=== PATIENT | male | born 1950 | race African-American/Black ===

== ENCOUNTER 2020-01-08 12:29 | Emergency (ER) | payer OTHER, SELFPAY ==
[2020-01-08 12:38] VITALS: BP 123/67; PULSE 82; RESP 20; TEMP 36.9; O2SAT 100
--- NOTE | 2020-01-08 13:40 | ED.GENADULT ---
HPI - General Adult General Chief complaint: Upper Respiratory Infection Stated complaint: runny nose/cough Time Seen by Provider: 01/08/20 13:40 Source: patient and RN notes reviewed Mode of arrival: ambulatory Limitations: no limitations History of Present Illness HPI narrative: 69-year-old -[place]i male presents with complaints of upper respiratory infection, cough, and intermittent headaches (not the worst of life) for the past 1 day. Robitussin with no relief. No facial swelling. Dry cough and intermittent productive cough (clear phlegm). No chest congestion. Nasal congestion and rhinorrhea. No chest pain or shortness of breath. No exacerbating factors. Denies fever or chills. Denies nausea, vomiting, and abdominal pain. Tolerating po intake well. Remains active. Some parts of this dictation were generated by voice recognition software and may contain typographical and/or grammatical inaccuracies. Related Data Allergies Allergy/AdvReac Type Severity Reaction Status Date / Time No Known Allergies Allergy Unknown Verified 01/08/20 12:45 Review of Systems Review of Systems: Narrative: CONSTITUTIONAL: Denies fever, chills, sweats. EYES: Denies visual changes, redness, discharge. ENT: Complains of rhinorrhea, congestion. Denies sore throat, otalgia. CARDIOVASCULAR: Denies chest pain, palpitations, edema. RESPIRATORY: Denies dyspnea, wheezing. Complains of dry cough,intermittent productive. GASTROINTESTINAL: Denies abdominal pain, nausea, vomiting, diarrhea. GENITOURINARY: Denies dysuria, hematuria, abnormal discharge. SKIN: Denies rash or itching. MUSCULOSKELETAL: Denies acute back pain, joint pain, or myalgia. NEUROLOGIC: Denies numbness or focal weakness. Complains of intermittent headaches. PSYCHIATRIC: Denies anxiety or depression. All systems reviewed & are unremarkable except as noted in HPI and below. [facility] Past Medical History Medical History (Updated 01/09/20 @ 00:01 by Joseph Demarco) Arthritis Surgical History Surgical History (Updated 01/08/20 @ 13:50 by ALFIE López) History of foot surgery Family History Family History (Updated 01/08/20 @ 13:51 by ALFIE López) Other No significant family history Social History Social History (Updated 01/08/20 @ 13:51 by ALFIE López) Smoking status: Never smoker Second hand tobacco smoke exposure: No Alcohol intake: never Substance use: never Gender identity (if verbalized by the patient): Male Comments At time of signature, agree with nurse past medical, surgical, social, and family history. There is no relevant family history pertinent to the presenting complaint. Exam Narrative: Exam Narrative: GENERAL: This is a well-nourished, well-developed patient, in no apparent distress. Talks in full sentences and ambulates with steady gait without dyspnea. HEAD: normocephalic, atraumatic. EYES: PERRL. Sclera clear/white. Vision is grossly intact. EARS: External ears normal, auditory canals clear and without drainage, TMs normal without perforation. Hearing grossly intact. NOSE: External nose normal with no obvious nasal discharge, nares with moderate redness and enlarged turbinates, clear rhinorrhea. THROAT: Mucous membranes moist, posterior pharynx with PND, mild erythema, no exudate, and normal tonsils. No drainage, no concern for Peritonsillar abscess. No drooling, trismus, or neck swelling. NECK: Neck supple, non-tender without lymphadenopathy, masses or thyromegaly. CARDIOVASCULAR: Regular rate and rhythm without murmurs, gallops, or rubs. RESPIRATORY: Clear to auscultation. Breath sounds equal bilaterally. No wheezes, rales, or rhonchi. GASTROINTESTINAL: Abdomen soft, non-tender, nondistended. Bowel sounds are active. No hepato-splenomegaly, or palpable masses. No guarding. SKIN: warm, intact with no suspicious lesions or rash, good texture and turgor. NEURO: awake, alert, and oriented to person, sami
== END 2020-01-08 14:03 | disposition home or self-care (01) ==
PROVIDERS: Emergency Provider Nurse Practitioner Family; PCP Family Medicine
DX: J00 Acute nasopharyngitis [common cold] (principal); J01.90 Acute sinusitis, unspecified; M19.90 Unspecified osteoarthritis, unspecified site
CPT/HCPCS: 99213; G0463

== ENCOUNTER 2020-01-19 12:34 | Emergency (ER) | payer OTHER, SELFPAY ==
[2020-01-19 12:40] VITALS: BP 126/81; PULSE 84; RESP 20; TEMP 36.8; O2SAT 100
--- NOTE | 2020-01-19 13:14 | ED.GENADULT ---
HPI - General Adult General Chief complaint: Upper Respiratory Infection Stated complaint: cough/body aches/mancuso/swollen rt big toe History of Present Illness HPI narrative: Patient is a 69-year-old -[place]er male presents to the urgent care via POV for evaluation of a productive cough that is been present since yesterday. Additionally, he reports myalgias. He reports sputum production is clear and small in quantity. He is also experiencing right great toe pain with erythema and swelling. He states his pain is aching in nature. Symptoms began this morning. Denies taking OTC meds for toe pain. Toe pain worsens with walking. OTC Claritin and Robitussin helped alleviate respiratory symptoms. Nothing worsens respiratory symptoms. Related Data Home Medications Medication Instructions Recorded Confirmed [id number] ml PO 01/19/20 [Robitussin Cold-Flu Night (PE)] Allergies Allergy/AdvReac Type Severity Reaction Status Date / Time No Known Allergies Allergy Unknown Verified 01/19/20 12:48 Review of Systems Review of Systems: Narrative: All other systems reviewed and are negative [facility] Past Medical History Medical History (Updated 01/19/20 @ 13:37 by ALFIE Prado, ) Arthritis Surgical History Surgical History (Updated 01/08/20 @ 13:50 by ALFIE López) History of foot surgery Family History Family History (Updated 01/08/20 @ 13:51 by ALFIE López) Other No significant family history Social History Social History (Updated 01/08/20 @ 13:51 by ALFIE López) Smoking status: Never smoker Second hand tobacco smoke exposure: No Alcohol intake: never Substance use: never Gender identity (if verbalized by the patient): Male Exam Narrative: Exam Narrative: GENERAL: Well-appearing, well-nourished, and in no acute distress. HEAD: Normocephalic, atraumatic. No sinus tenderness or facial swelling appreciated. EYES: PERRLA and EOMI. No evidence of erythema, swelling, or drainage. ENT: Bilateral external ears and ear canals normal. Bilateral TMs are normal.No TM perforation. Nares clear, no rhinorrhea or epistaxis. Bilateral turbinates without erythema/ swelling. Mucous membranes moist and pink. Uvula is midline without erythema and swelling. No evidence of petechial rash, cobblestoning, lesions, ulcers, erythema, swelling, exudates, peritonsillar abscess, tenting, or drooling. Breath odor and voice normal. NECK: Supple. No Lymphadenopathy or nuchal rigidity appreciated. CHEST: Bilateral lung renner are clear to auscultation. No respiratory distress. No evidence of cough or pleuritic cp upon examination. HEART: Regular rate and rhythm. No murmur, gallop, or rub heard. EXTREMITIES: Mild pain, swelling, and erythema appreciated to first MTP consistent with gout. No evidence of injury, decreased ROM, cyanosis, hematoma, laceration, abrasion, deformity, rash, or puncture. Mild evidence of pain with active/passive flexion and extension of right great toe.. No evidence of dislocation, ligament laxity, effusion, or pain at rest. Pulses palpable at 2+, strength 5/5, and cap refill < 3 seconds in affected extremity. DTRs normal. Gait normal. SKIN: Warm, dry, no rash. NEURO: No focal deficits. Alert and oriented x3. SPECIAL OBSERVATIONS: Smiling. No evidence of discomfort. Course Vital Signs Vital signs: Vital Signs Temperature 98.3 F 01/19/20 12:40 Pulse Rate 84 01/19/20 12:40 Respiratory Rate 20 01/19/20 12:40 Blood Pressure 126/81 01/19/20 12:40 Pulse Oximetry 100 01/19/20 12:40 Temperature 98.3 F 01/19/20 12:40 Pulse Rate 84 01/19/20 12:40 Respiratory Rate 20 01/19/20 12:40 Blood Pressure 126/81 01/19/20 12:40 Pulse Oximetry 100 01/19/20 12:40 Medical Decision Making Differential Diagnosis Differential Diagnosis: Allergic rhinitis, ABRS, acute viral sinusitis, strep pharyngitis, nasopharyngi
== END 2020-01-19 13:38 | disposition home or self-care (01) ==
PROVIDERS: Emergency Provider Nurse Practitioner Family; PCP Family Medicine
DX: J06.9 Acute upper respiratory infection, unspecified (principal); M79.674 Pain in right toe(s); M19.90 Unspecified osteoarthritis, unspecified site
CPT/HCPCS: 87804; 99213; G0463

== ENCOUNTER 2020-05-22 16:02 | Emergency (ER) | payer OTHER, SELFPAY ==
--- NOTE | ~2020-05-22 | XR_ITS ---
EXAMINATION: XR ankle RT min 3V DATE: 05/22/2020 16:23 INDICATION: Right ankle injury and pain. TECHNIQUE: 4 views of right ankle were obtained. COMPARISON: Right ankle radiographs 02/15/2013 FINDINGS: Bone alignment is normal. No acute fracture. There is an old healed fracture of distal fibu la. There is heterotopic ossification of the tibiofibular syndesmosis. There are enthesophytes at med ial malleolus. There is moderate midfoot osteoarthritis. There are enthesophytes at the posterior and plantar aspects of calcaneal tuberosity. Ankle soft tissue swelling is noted. IMPRESSION: 1. Moderate midfoot osteoarthritis. Reviewed, dictated and finalized at location A.
--- NOTE | ~2020-05-22 | XR_ITS ---
EXAMINATION: XR foot RT min 3V DATE: 05/22/2020 16:23 INDICATION: Right-sided injury and pain. TECHNIQUE: 4 views of right foot were obtained. COMPARISON: None. FINDINGS: Bone alignment is normal. No acute fracture. There is mild osteoarthritis of first metatars ophalangeal joint. There is mild to moderate osteoarthritis of some of the interphalangeal joints and midfoot joints. There are enthesophytes at the posterior and plantar aspects of calcaneal tuberosity . IMPRESSION: 1. Polyarticular osteoarthritis. Reviewed, dictated and finalized at location A.
--- NOTE | 2020-05-22 16:30 | ED.LOWEXIN ---
HPI - Extremity Injury (Lower) General Chief Complaint: Extremity Injury, Lower Stated Complaint: rt foot injury Time Seen by Provider: 05/22/20 16:30 Source: patient and RN notes reviewed Mode of arrival: ambulatory Limitations: no limitations History of Present Illness HPI Narrative: 70 year old male accompanied by his with complaints of pain and swelling to his lateral right ankle and foot since injury at work today. Patient states that he was walking across floor in kitchen area and rolled his ankle and foot causing extreme pain and swelling to his right lateral foot and ankle. Patient states that he tried to stay off of his foot as much as possible the rest of the day but swelling and pain have increased. complaint: ankle injury and foot injury Onset (ago): hour(s) (occurred this morning while at work) Injury: Right: ankle and foot Type of Injury: eversion Place: work Severity: moderate Severity scale (1-10): 5 Relieving factors: nothing Exacerbating factors: weight bearing Context: other (rolled ankle and foot) Associated symptoms: swelling and other (pain to lateral right ankle and foot) Other symptoms: none Treatments prior to arrival: other (limited activity as much as possible the rest of day at work) Related Data Home Medications Medication Instructions Recorded Confirmed No Home Medications 05/22/20 05/22/20 Allergies Allergy/AdvReac Type Severity Reaction Status Date / Time No Known Allergies Allergy Unknown Verified 01/26/20 09:32 Review of Systems Review of Systems: Narrative: CONSTITUTIONAL: Denies fever, chills, or sweats. EYES: Denies visual changes, redness, or discharge. ENT: Denies rhinorrhea, congestion, sore throat, or otalgia. CARDIOVASCULAR: Denies chest pain, palpitations, or edema. RESPIRATORY: Denies cough or dyspnea. GASTROINTESTINAL: Denies abdominal pain, nausea, vomiting, or diarrhea. GENITOURINARY: Denies dysuria or hematuria. SKIN: Denies rash or itching. MUSCULOSKELETAL: Denies back pain, positive for right lateral ankle and foot pain, or myalgia. NEUROLOGIC: Denies headache, numbness, or weakness. PSYCHIATRIC: Denies anxiety or depression. All systems reviewed & are unremarkable except as noted in HPI and below PMFSH Past Medical History Medical History Arthritis Surgical History Surgical History History of foot surgery Family History Family History Other No significant family history Social History Social History Smoking status: Never smoker Second hand tobacco smoke exposure: No Alcohol intake: never Substance use: never Substance use type: does not use Gender identity (if verbalized by the patient): Male Spiritual care concerns: Yes Agree to blood products: Yes Comments At time of signature, agree with nursing past medical, surgical, social history. There is no relevant family history pertinent to the presenting complaint. Exam Narrative: Exam Narrative: GENERAL: Well-appearing, well-nourished, and in no acute distress. HEAD: Normocephalic, atraumatic. EYES: PERRLA and EOMI. ENT: Nares clear, no rhinorrhea or epistaxis. Mucous membranes moist. NECK: Supple. CHEST: Clear to auscultation. No respiratory distress. HEART: Regular rate and rhythm. No murmur heard. Normal peripheral pulses. ABDOMEN: Soft, nontender, nondistended, normal active bowel sounds. EXTREMITIES: Normal range of motion with pain and swelling to the lateral aspect of the right foot and ankle, circulation and sensation intact, strong right pedal pulse SKIN: Warm, dry, no rash. NEURO: No focal deficits. Alert and oriented x3. MDM - Extremity Injury (Lower) Differential Diagnosis Differential diagnosis: Likely ankle sprain and strain, ankle fracture and ot
[2020-05-22 16:47] VITALS: BP 145/79; PULSE 79; RESP 16; TEMP 37.2; O2SAT 100
== END 2020-05-22 16:50 | disposition home or self-care (01) ==
PROVIDERS: Emergency Provider Registered Nurse; PCP Family Medicine
DX: S93.401A Sprain of unspecified ligament of right ankle, initial encounter (principal); S96.911A Strain of unspecified muscle and tendon at ankle and foot level, right foot, initial encounter; X50.9XXA Other and unspecified overexertion or strenuous movements or postures, initial encounter; M79.671 Pain in right foot; M19.071 Primary osteoarthritis, right ankle and foot
CPT/HCPCS: 73610; 73630; 99213; G0463

== ENCOUNTER → 2023-09-06 09:37 | Outpatient (CLI) | payer MEDICARE, SELFPAY ==
--- NOTE | ~2023-09-06 | XR_ITS ---
XR ankle LT min 3V DATE: 09/06/2023 09:48 INDICATION: Medial ankle main TECHNIQUE: 4 views COMPARISON: None FINDINGS: There is diffuse prominent soft tissue swelling of the ankle. There is mild tibiotalar osteoarthritis. No fracture or dislocation, periosteal reaction or bone destruction. There is prominent inferior calcaneal enthesopathy. IMPRESSION: Diffuse soft tissue swelling Plantar aponeurosis Reviewed, dictated and finalized at location L.
== END ==
PROVIDERS: PCP Family Medicine; Visit Provider Family Medicine
DX: M25.572 Pain in left ankle and joints of left foot (principal)
CPT/HCPCS: 73610

== ENCOUNTER 2024-01-30 15:46 | Emergency (ER) | payer OTHER, MEDICARE, SELFPAY ==
--- NOTE | ~2024-01-30 | CT_ITS ---
EXAMINATION: CT cervical spine wo con DATE: 01/30/2024 16:09 INDICATION: neck pain TECHNIQUE: Computed tomography (CT) of the cervical spine was performed without intravenous contrast. Automated exposure control and iterative reconstruction technique were employed. The dose-length pro duct was 395.33 mGy-cm. COMPARISON: CT soft tissue neck 03/10/2009. FINDINGS: Vertebral Body Alignment: Intact. Craniocervical and atlantoaxial alignment: Moderate degenerative change. Alignment intact. Osseous structures/fracture: No evidence of a lytic or blastic process in the visualized spine. No e vidence of acute fracture. Cervical soft tissues: The paraspinal soft tissues planes are maintained. Degenerative changes: Degenerative changes, without severe neural foraminal or central canal narrowin g. IMPRESSION: No acute fracture or traumatic malalignment in the cervical spine. Reviewed, dictated and finalized at location K.
--- NOTE | ~2024-01-30 | CT_ITS ---
EXAMINATION: CT brain wo con DATE: 01/30/2024 16:07 INDICATION: head injury . TECHNIQUE: Computed tomography (CT) of the head was performed without intravenous contrast. The mA wa s adjusted according to patient size. Iterative reconstruction technique was employed. The dose-lengt h product was 681.00 mGy-cm. COMPARISON: 09/11/2006. FINDINGS: No acute intracranial hemorrhage or extra-axial fluid collection. No hydrocephalus, mass, or herniation. No acute ischemic infarct. Unremarkable dural venous sinus attenuation. No acute osseous abnormality. Small left maxillary retention cyst/polyp, the remaining aerated spaces are clear. Mild atrophy and chronic white matter change. Atherosclerotic intracranial calcification. IMPRESSION: No acute intracranial process. Reviewed, dictated and finalized at location K.
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
[2024-01-30 15:45] VITALS: BP 178/106; PULSE 77; RESP 20; TEMP 36.9; O2SAT 100
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
== END 2024-01-30 17:03 | disposition home or self-care (01) ==
PROVIDERS: Emergency Provider Emergency Medicine; PCP Family Medicine
DX: S16.1XXA Strain of muscle, fascia and tendon at neck level, initial encounter (principal); S20.212A Contusion of left front wall of thorax, initial encounter; N18.30 Chronic kidney disease, stage 3 unspecified; E03.9 Hypothyroidism, unspecified; M19.90 Unspecified osteoarthritis, unspecified site; V43.52XA Car driver injured in collision with other type car in traffic accident, initial encounter
CPT/HCPCS: 70450; 71046; 72125; 99284

== ENCOUNTER 2024-04-24 13:38 | Emergency (ER) | payer MEDICARE, SELFPAY ==
--- NOTE | ~2024-04-24 | XR_ITS ---
XR knee RT min 4V Ordering provider: Robyn Michel PA-C History: . right knee pain, fall, ANTERIOR ABRASION . Comparison: None. FINDINGS: BONES: No acute fracture or dislocation. JOINT SPACES: Normal. Mild degenerative changes in the patellofemoral joint. SOFT TISSUES: Normal. IMPRESSION: No acute osseous abnormality right knee. Reviewed, dictated and finalized at location A.
--- NOTE | ~2024-04-24 | XR_ITS ---
XR wrist RT min 3V Ordering provider: Robyn Michel PA-C History: . PAIN, FALL . Comparison: None. FINDINGS: BONES: No acute fracture or dislocation. No definite scaphoid fracture. JOINT SPACES: Severe osteoarthritic changes of the first carpometacarpal joint. Otherwise, Normal. SOFT TISSUES: Normal. IMPRESSION: No acute osseous abnormality right wrist. Reviewed, dictated and finalized at location A.
[2024-04-24 14:00] VITALS: BP 152/94; PULSE 72; RESP 20; TEMP 37.2; O2SAT 100
--- NOTE | 2024-04-24 14:43 | ED.LOWEXIN ---
HPI - Extremity Injury (Lower) General Chief Complaint: Extremity Injury, Lower Stated Complaint: fall 04/23 injured both knees R knee hurts more Time Seen by Provider: 04/24/24 14:40 Source: patient Mode of arrival: ambulatory Limitations: no limitations History of Present Illness HPI Narrative: This is a 74 year old male that presents to the ER after a fall last night. Reports he tripped and fell and landed on his knees. Reports injury to the right knee and right wrist as well. He has been ambulatory. He did not hit his head or lose consciousness. Denies decreased ROM or numbness. Related Data Home Medications Medication Instructions Recorded Confirmed brimonidine 0.2 % eye drops 1 drp EACH EYE TID 12/14/22 09/06/23 latanoprost 0.005 % eye drops 1 drp EACH EYE QPM 12/14/22 09/06/23 timolol maleate 0.5 % eye drops 1 drp EACH EYE DAILY 12/14/22 09/06/23 Allergies Allergy/AdvReac Type Severity Reaction Status Date / Time No Known Allergies Allergy Unknown Verified 04/24/24 14:00 Review of Systems Review of Systems: CONSTITUTIONAL: Denies fever MUSCULOSKELETAL: Reports joint pain, and myalgia. NEUROLOGIC: Denies numbness, or weakness. All systems reviewed & are unremarkable except as noted in HPI and below PMFSH Past Medical History Medical History Arthritis CKD (chronic kidney disease) stage 3, GFR 30-59 ml/min Hypothyroidism Surgical History Surgical History History of foot surgery (Unknown) 2015 - left Family History Family History Other No significant family history Social History Social History Smoking status: Never smoker Second hand tobacco smoke exposure: No Alcohol intake: never Substance use: never Substance use type: does not use Lack of Transportation: No Lack of Food: Never True Current Housing: I Have Housing Concerned About Future Housing: No Difficulty Paying Gas/Electric Bills: No Difficulty Paying for Meds: No Currently Unemployed: No Education: Bachelor's Degree Difficulty w/ Childcare or Family Care: No Living arrangements: with family Occupation/Education: occupation Gender identity (if verbalized by the patient): Male Spiritual care concerns: Yes Agree to blood products: Yes Exam Narrative: GENERAL: Well-appearing, well-nourished, and in no acute distress. HEAD: Normocephalic, atraumatic. EYES: EOMI. EXTREMITIES: Normal range of motion. No obvious deformity. Normal DP and radial pulses. Superficial abrasion on the right knee superiorly SKIN: Warm, dry, no rash. NEURO: No focal deficits. Alert and oriented x3. PSYCH: Normal mood and affect Course Course Emergency Course: Patient updated on his workup and agrees with plan of care Vital Signs Vital signs: Vital Signs Temperature 98.9 F 04/24/24 14:00 Pulse Rate 72 04/24/24 14:00 Respiratory Rate 20 04/24/24 14:00 Blood Pressure 152/94 H 04/24/24 14:00 Pulse Oximetry 100 04/24/24 14:00 Oxygen Delivery Room Air 04/24/24 14:00 Temperature 98.9 F 04/24/24 14:00 Pulse Rate 72 04/24/24 14:00 Respiratory Rate 20 04/24/24 14:00 Blood Pressure 152/94 H 04/24/24 14:00 Pulse Oximetry 100 04/24/24 14:00 Oxygen Delivery Room Air 04/24/24 14:00 MDM - Extremity Injury (Lower) MDM Narrative Medical decision making narrative: Patient presents to the emergency department for right knee and wrist pain after a fall last night. Patient is neurovascularly intact. Right knee and wrist x-rays are without acute osseous abnormalities. Patient was updated on his workup and agrees with plan of care. He is to follow up with primary provider. He was given warnings to return to the ER Differential Diagnosis Differential
== END 2024-04-24 15:16 | disposition home or self-care (01) ==
PROVIDERS: Emergency Provider Physician Assistant; PCP Family Medicine
DX: S80.01XA Contusion of right knee, initial encounter (principal); N18.9 Chronic kidney disease, unspecified; E03.9 Hypothyroidism, unspecified; Z79.899 Other long term (current) drug therapy; W01.0XXA Fall on same level from slipping, tripping and stumbling without subsequent striking against object, initial encounter
CPT/HCPCS: 73110; 73564; 99284

== ENCOUNTER 2025-10-20 10:16 | Outpatient (CLI) | payer MEDICARE, SELFPAY ==
--- OUTSIDE RECORDS SUMMARY | 2025-10-20 12:02 | XMS_ITS | Encounter Summary ---
Author Organization [facility] Address [address] [place] [address] Care Team Providers Care [employer] Name Role Phone None, Physician Primary Care Provider Unavailabl e Reason for Visit * Reason Comments Refill Request Encounter Details Date Type Department Care Team (Late st Contact Info) Description 01/27/2023 Refill [facility] [address] [place] [phone] Amelia Wade MD [address] [place] [phone] Refill Request Social History Tobacco Use Types Packs/Day Years Used Date Smoking Tobacco: Unknown Smokeless Tobacco: Never Sex and Gender Information Value Date Recorded Sex Assigned at Not on file Legal Sex Male 10:28 AM CDT Gender Identity Not on file Sexual Orientation Not on file documented as of this encounter Plan of Treatment Upcoming Encounters Date Type Department Care Team (Late st Contact Info) Description 11/17/2025 9:20 AM CLINICAL PSYCHOLOGIST Office Visit [facility] [address] [place] [phone] Raul Rivera MD [address] [place] [phone] documented as of this encounter Visit Diagnoses Not on filedocumented in this encounter Care Teams [employer] Relationship Specialty Start Date End Date None, Physician [address] [place] [address] PCP - General 10/05/23 documented as of this encounter
--- OUTSIDE RECORDS SUMMARY | 2025-10-20 12:02 | XMS_ITS | Encounter Summary ---
Author Organization [facility] Address [address] [place] [address] Care Team Providers Care Fire And Explosion Investigator Name Role Phone None, Physician Primary Care Provider Unavailabl e Reason for Visit * Reason Onset Date Comments MEDICATION REFILL 01/26/2025 Encounter Details Date Type Department Care Team (Late st Contact Info) Description 01/26/2025 Telephone [facility] [address] [place] [phone] Raul Rivera MD [address] [place] [phone] MEDICATION REFILL Social History Tobacco Use Types Packs/Day Years Used Date Smoking Tobacco: Unknown Smokeless Tobacco: Never Sex and Gender Information Value Date Recorded Sex Assigned at Not on file Legal Sex Male 10:28 AM CDT Gender Identity Not on file Sexual Orientation Not on file documented as of this encounter Miscellaneous Notes * Telephone Encounter - Raine Wilson - 01/26/2025 11:00 AM CDT Images from the original note were not included. documented in this encounter Plan of Treatment Upcoming Encounters Date Type Department Care Team (Late st Contact Info) Description 11/17/2025 9:20 AM FEED MILL OPERATOR Office Visit [facility] [address] [place] [phone] Raul Rivera MD [address] [place] [phone] documented as of this encounter Visit Diagnoses Not on filedocumented in this encounter Care Teams Fire And Explosion Investigator Relationship Specialty Start Date End Date None, Physician [address] [place] [address] PCP - General 10/05/23 documented as of this encounter
--- OUTSIDE RECORDS SUMMARY | 2025-10-20 12:02 | XMS_ITS | Encounter Summary ---
Author Organization [facility] Address [address] [facility] [place] [address] Care Team Providers Care Automated Cutting Machine Operator Name Role Phone None, Physician Primary Care Provider Unavailabl e Reason for Visit * Reason Onset Date Comments Refill Request 09/23/2025 Encounter Details Date Type Department Care Team (Late st Contact Info) Description 09/23/2025 Telephone [facility] [address] [place] [phone] Raul Rivera MD [address] [place] [phone] Refill Request Social History Tobacco Use Types Packs/Day Years Used Date Smoking Tobacco: Unknown Smokeless Tobacco: Never PHQ-2 Answer Date Recorded Patient Health Questionnaire-2 Score 0 03/10/2025 Sex and Gender Information Value Date Recorded Sex Assigned at Not on file Legal Sex Male 10:28 AM CDT Gender Identity Not on file Sexual Orientation Not on file documented as of this encounter Miscellaneous Notes * Telephone Encounter - Dillan Steward - 09/23/2025 1:26 PM CST Pt calling for refill on eyedrops, making sure it is sent to [facility] in [place] [address] Ph# for pharmacy [phone] DIPPER documented in this encounter Plan of Treatment Upcoming Encounters Date Type Department Care Team (Late st Contact Info) Description 11/17/2025 9:20 AM TIN DIPPER Office Visit [facility] [address] [place] [phone] Raul Rivera MD [address] [place] [phone] documented as of this encounter Visit Diagnoses Not on filedocumented in this encounter Care Teams Automated Cutting Machine Operator Relationship Specialty Start Date End Date None, Physician [address] [place] [address] PCP - General 10/05/23 documented as of this encounter
--- OUTSIDE RECORDS SUMMARY | 2025-10-20 12:03 | XMS_ITS | Clinical Summary ---
Author Organization [facility] Address [address] [place] [address] Care Team Providers Care Chemical Engineering Intern Name Role Phone None, Physician Primary Care Provider Unavailabl e Source Comments [facility],non-owned Affiliates and Associated Physician Practices is amultiple site organization consisting of ambulatory clinics and hospital sitesin [place], [place], [place] and [place]. This disclosure is being madepursuant to the Care Everywhere program and may not contain all information available regarding this patient. Last updated 18.[facility] [employer] Allergies Active Allergy Reactions Criticality Noted Date Comments Dorzolamide Other 03/10/2025 Subjectively felt that multiple eye drops too strong with blurred vision and might be subjective response to dorzolamide contained in Cosopt. Raul Rivera MD 03/10/2025 12:10 PM (Via Voice Recognition) Medications * Be aware that medications may not be up to date on this document. Alwaysverify current medications with the patient. levothyroxine (Synthroid) 88 MCG tablet TAKE 1 TABLET BY MOUTH EVERY DAY. PLEASE HAVE LABS DONE FOR FURTHER REFILLS 5 Active brimonidine (Alphagan) 0.2 % ophthalmic solution Instill 1 (one) drop into both eyes 3 times daily 15 mL 11 5 Active latanoprost (Xalatan) 0.005 % ophthalmic solutionIndicat ions:Pigmentary glaucoma of both eyes, severe stage Instill 1 (one) drop into both eyes at bedtime 7.5 mL 11 5 Active timolol maleate (Timoptic) 0.5 % ophthalmic solution Instill 1 (one) drop into both eyes 2 times daily 15 mL 11 5 Active latanoprost (Xalatan) 0.005 % ophthalmic solutionIndicat ions:Pigmentary glaucoma of both eyes, severe stage Instill 1 (one) drop into both eyes at bedtime 7.5 mL 11 5 10/09/20 25 Discontinu ed(Reorder ) brimonidine (Alphagan) 0.2 % ophthalmic solution Instill 1 (one) drop into both eyes 3 times daily 15 mL 11 5 10/09/20 25 Discontinu ed(Reorder ) timolol maleate (Timoptic) 0.5 % ophthalmic solution Instill 1 (one) drop into both eyes 2 times daily 15 mL 11 5 10/09/20 25 Discontinu ed(Reorder ) Active Problems Problem Noted Date Diagnosed Date Age-related nuclear cataract of both eyes 2021 Closed fracture of lateral malleolus 07/11/2022 Derangement of knee 07/11/2022 Fracture of ankle 07/11/2022 Pain in elbow 07/11/2022 Pain in limb 07/11/2022 Ganglion of joint 07/11/2022 Pigmentary glaucoma of both eyes, severe stage 1 11/09/2020 Overview (03/10/2025): Good exam today, we noted evidence of zonular weakness inferiorly especially left eye and perhaps somewhat on the right with inferior equator of the lens visible after dilation at least in the left eye. These changes could suggest prior trauma associated with pigment dispersion noted and causing visual field defects more than expected. It is possible these are also congenital changes associated with congenital ptosis. Raul Rivera MD 03/10/2025 12:24 PM (Via Voice Recognition) Patient apparently with history of prescription for glaucoma medication daily about 8 years ago but did not follow-up with this elsewhere. He now presents with what appears to be possibly severe glaucoma damage despite only borderline intraocular pressures above normal at presentation earlier this year on the comprehensive service. 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 Size 3 Ibrahim visual field shows near complete loss of superior hemifield. Although the patient does probably have evidence of congenital ptosis, this does appear more consistent with glaucomatous changes with respect to the horizontal midline. There also appears to be some defects in the inferior arcuate area of the right and nasal step inferiorly on the left. Gonioscopy shows wide open angles but 3-4+ trabecular meshwork pigmentation suggesting possible pigment dispersion component that might have been more severe when the patient was younger with undetected glaucoma. 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 Although he seems to be unaware of this his indicates that this has been present as long his she has known the patient for several decades. Raul Rivera MD 09/09/2021 3:57 PM Encounters Date Type Department Care Team Description 10/09/2025 Orders Only [facility] [address] [place] [phone] Willie Purvis MD Pigmentary glaucoma of both eyes, severe stage 10/08/2025 12:35 PM CONTRACT MAIL CARRIER Clinical Support [facility] [address] [place] [phone] Oleksandr Logan, BLAINE Encounter for observation for other suspected diseases and conditions ruled out (Primary Dx); Visual disturbance 10/08/2025 11:30 AM CONTRACT MAIL CARRIER Office Visit [facility] [address] [place] [phone] Oleksandr Logan, OD Visual disturbance (Primary Dx); Bilateral dry eyes; Refractive error 10/08/2025 Travel 09/23/2025 Travel 09/23/2025 Telephone [facility] [address] [place] [phone] Raul Rivera MD Refill Request from Last 3 Months Family History Medical History Relation Name Comments Glaucoma Neg Hx Social History Tobacco Use Types Packs/Day Years Used Date Smoking Tobacco: Unknown Smokeless Tobacco: Never PHQ-2 Answer Date Recorded Patient Health Questionnaire-2 Score 0 03/10/2025 Sex and Gender Information Value Date Recorded Sex Assigned at Not on file Legal Sex Male 10:28 AM CDT Gender Identity Not on file Sexual Orientation Not on file Plan of Treatment Upcoming Encounters Date Type Department Care Team (Late st Contact Info) Description 11/17/2025 9:20 AM CONTRACT MAIL CARRIER Office Visit [facility] [address] [place] [phone] Raul Rivera MD [address] [place] [phone] Health Maintenance Due Date Last Done Comments COLOGUARD (AGES 45-75) - COL ON CA SCREENING 1950 COLON MONITORING 1950 COLONOSCOPY - COLON CA SCREENING 1950 CT COLONOGRAPHY - COLON CA SCREENING 1950 Colorectal Cancer Screening 1950 FIT - COLON CA SCREENING 1950 FLEX SIG - COLON CA SCREENING 1950 LIPID TESTING 1950 MEDICARE AWV 12 MONTHS 1950 HEPATITIS C SCREENING 01/29/1968 DTAP/TDAP/TD VACCINES (1 - Tdap) 1969 PNEUMOCOCCAL VACCINE 50+ (1 of 1 - PCV) 02/03/2000 ZOSTER VACCINE (1 of 2) 02/03/2000 Respiratory Syncytial Virus (RSV) Vaccine Pt: or over 60 yrs (1 - 1-dose 75+ series) 2025 COVID-19 VACCINE (3 - 2024-2 6 season) 2025 01/28/2021, 01/06/2021 INFLUENZA VACCINE (#1) 2025 DEPRESSION SCREENING Completed 03/10/2025 HEPATITIS B VACCINE Aged Out No longe r eligible based on patient's age to complete this topic HIB VACCINE Aged Out No longer eligi ble based on patient's age to complete this topic HPV VACCINE Aged Out No longer eligi ble based on patient's age to complete this topic MENINGOCOCCAL (Group B) VACCINE SHARED DECISION-MAKING Aged Out No longer eligible based on patient's age to complete this topic MENINGOCOCCAL GROUPS A/C/Y/W VACCINE Aged Out No longer eligible b ased on patient's age to complete this topic Procedures Procedure Name Priority Date/Time Associated Diagnosis Comments RETINAL ANALYSIS OCT Routine 10/08/2025 12:30 PM CONTRACT MAIL CARRIER Visual disturbance Encounter for observation for other suspected diseases and conditions ruled out from Last 3 Months Results * RETINAL ANALYSIS OCT (10/08/2025 12:30 PM CONTRACT MAIL CARRIER) Anatomical Region Laterality Modality Head External-Camera Photography Narrative 10/08/2025 12:38 PM CONTRACT MAIL CARRIER Images from the original result were not included. OD: good signal - flat, even OS: good signal - flat, even us Oleksandr Logan OD OPHTHALMOLOGY SCHED ORD W PACS F inal Result from Last 3 Months Insurance MEDICARE MEDICARE MEDICARE MEDICARE Member Subscriber Plan / Payer (Ef fective 2020-Present) Name:Lyle Rivera Jr Member ID:[id number] Relation to Subscriber:Self Name:LYLE RIVERA JR Subscriber ID:[id number] Payer ID:Not on file Group ID:Not on file Type:Medicare Address: [place] [phone] MEDICARE MEDICARE Member Subscriber Plan / Payer ( fective 2020-Present) Name:Lyle Rivera Jr Member ID:[id number] Relation to Subscriber:Self Name:LYLE RIVERA JR Subscriber ID:[id number] Payer ID:Not on file Group ID:Not on file Type:Medicare Address: [place] [phone] Care Teams Chemical Engineering Intern Relationship Specialty Start Date End Date None, Physician [address] [place] [address] PCP - General 10/05/23
[2025-10-20 19:20] LABS: Hemoglobin A1C 5.3 % (<5.7)
[2025-10-20 19:21] LABS: Hematocrit 42.1 % (42.0-52.0); Hemoglobin 13.5 g/dL (14.0-18.0); Immature Granulocyte Percent A 0.3 % (0-0.5); Lymphocytes Absolute Auto 0.56 K/mm3 (0.9-3.2); Mean Corpuscular HGB Conc 32.1 g/dl (32-36); Mean Corpuscular Hemoglobin 27.3 pg (26-34); Mean Corpuscular Volume 85.1 fl (80-100); Nucleated Red Blood Cells Absolute Auto 0.000 K/mm3 (0.0-0.012); Nucleated Red Blood Cells Perc 0.0 % (0.0-0.2); Platelet Count Result 205 k/mm3 (150-375); Red Blood Count 4.95 M/mm3 (4.6-6.20); White Blood Count 3.4 K/mm3 (4.5-10.0)
[2025-10-20 19:41] LABS: Free T4 Free Thyroxine 0.53 ng/dL (0.78-2.19)
[2025-10-20 20:40] LABS: Alanine Aminotransferase 11 U/L (6-50); Albumin Level 4.0 g/dL (3.5-5.1); Alkaline Phosphatase 184 U/L (38-126); Anion Gap 3 mmol/L (4-12); Aspartate Amino Transferase 25 U/L (17-59); Bilirubin,Total 0.6 mg/dL (0.2-1.3); Blood Urea Nitrogen 15 mg/dL (9-20); Calcium 8.7 mg/dL (8.4-10.2); Carbon Dioxide 31 mmol/L (22-30); Chloride 105 mmol/L (98-107); Estimated Glomerular Filt Rate 41; Glucose 52 mg/dL (65-110); Magnesium 2.1 mg/dL (1.6-2.3); Potassium 4.4 mmol/L (3.4-5.0); Prostate Specific Antigen 6.6 ng/mL (< OR = 4.0); Sodium 139 mmol/L (137-145); Thyroid Stimulating Hormone 15.700 uIU/mL (0.465-4.680); Total Protein 7.7 g/dL (6.3-8.2); Vitamin B12 < 159.0 pg/mL (239-931)
== END 2025-10-20 10:17 | disposition home or self-care (01) ==
PROVIDERS: PCP Family Medicine; Visit Provider Nurse Practitioner Family
DX: E03.9 Hypothyroidism, unspecified (principal); N18.31 Chronic kidney disease, stage 3a; R73.9 Hyperglycemia, unspecified; H53.8 Other visual disturbances; Z12.5 Encounter for screening for malignant neoplasm of prostate; E55.9 Vitamin D deficiency, unspecified
CPT/HCPCS: 36415; 80053; 82306; 82607; 83036; 83735; 84153; 84439; 84443; 85025; G0103